=== PATIENT | male | born 1940 | race Caucasian/White ===

== ENCOUNTER → 2020-02-27 | Outpatient (CLI) | payer MEDICARE ==
[~2020-02-27] MED LIST: DOBUTamine DRIP for NUC MED 500 MG in DEXTROSE/WATER 1 250ML.BAG IV ONE
--- NOTE | 2020-02-27 17:27 | P.STRESS ---
- Stress Test Note Stress Test Results/Findings: Exam Performed: dobutamine stress echo Exam Date: 02/27/20 Reason for Exam: PRE-OP Height: 5 ft 7 in Weight: 150 kg Protocol: DSE Stage: 3 Duration of Exercise: 7:15 Resting Heart Rate: 58 Resting Blood Pressure: 128/63 Maximum Achieved Heart Rate: 120 Maximum Achieved Blood Pressure: 148/47 85% PMHR: 119 100% PMHR: 140 METS: NA Technologist Comment: Stress Test Results/Findings: Patient underwent dobutamine stress echo with infusion of dobutamine into Stage 3 for a total of 7 minutes 15 seconds. Patient's maximum heart rate was 120 bpm which represented 86 % age-predicted maximum heart rate. Stress EKG portion: At baseline patient's EKG showed normal sinus rhythm, normal axis, no significant ST or T wave abnormalities. At peak dobutamine infusion, EKG showed nondiagnostic 0.[address] depressions in the inferolateral leads. Stress echo portion: 2-D echocardiogram was performed in the parasternal long, personal short, apical 2 and apical four-chamber views at rest, low-dose, peak infusion and in recovery. At baseline, echocardiogram showed left ventricular ejection fraction 60% without wall motion abnormalities. With peak infusion, echocardiogram shows improvement in left ventricular ejection fraction, increase contractility, decrease in left ventricular dimension without wall motion abnormalities consistent with a normal response to dobutamine. Conclusions: 1. Normal stress EKG and echo response to dobutamine infusion without any evidence of inducible ischemia.
== END | disposition home or self-care (01) ==
LOC: RADNMMAIN 09:48
PROVIDERS: ATTEND Internal Medicine Clinical Cardiac Electrophysiology
DX: Z01.810 Encounter for preprocedural cardiovascular examination (principal)
CPT/HCPCS: 93351; J1250

== ENCOUNTER 2024-09-12 13:01 | Day surgery (SDC) | payer MEDICARE ==
[~2024-09-12 13:01] MED LIST changes: -DOBUTamine DRIP for NUC MED 500 MG in DEXTROSE/WATER 1 250ML.BAG IV ONE; +LACTATED RINGERS 1,000 ML IV SCH
[2024-09-12 14:24] VITALS: TEMP 97.2
[2024-09-12] MEDS: IV FLUID CONTINUATION 1,000 ML IV ONE (14:31)
[2024-09-12] MEDS ORDERED: PROPOFOL 10 MG/ML 20 ML VIAL IV ONE (15:06)
--- NOTE | 2024-09-12 15:16 | P.PCN ---
Date of Procedure: 09/12/24 Procedure(s) Performed: BRIEF HISTORY: Patient is a 83-year-old, pleasant, white male scheduled for an endoscopy as a part evaluation of GERD/chronic cough for the last several months duration. He has history of GERD and has been on omeprazole 20 mg daily but recently was switched to Protonix 40 mg daily and symptoms are gradually improving.. PROCEDURE PERFORMED: Esophagogastroduodenoscopy. With biopsy PREOPERATIVE DIAGNOSIS: GERD/chronic cough. IV sedation per anesthesia. PROCEDURE: After informed consent was obtained, the patient was brought into the endoscopy unit. IV sedation was administered by Anesthesia under continuous monitoring. Initially the Olympus GIF-140 video endoscope was inserted into the mouth. Esophagus intubated without any difficulty. It was gradually advanced into the stomach and duodenum and carefully examined. The bulb and the second part of the duodenum appeared normal. The scope at this time was withdrawn to the stomach, adequately insufflated with air, and upon careful examination, mucosa of the antrum, had gastritis and biopsies were done from this area. Mucosa of the body, cardia and the fundus appeared normal. The scope was then withdrawn into the esophagus. Small hiatal hernia noted. The GE junction was located at 37 cm from the incisors. There was a 3 mm tongues of Gu's appearing mucosa proximal to the GE junction that was biopsied. The rest of the esophagus appeared normal. There were no erosions or ulcerations seen and the patient tolerated the procedure well. IMPRESSION: 1. Mild antral gastritis. 2. Small hiatal hernia 3.. 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 RECOMMENDATIONS: The findings of this examination were discussed with the patient as well as his family. He was advised to follow-up with the biopsy results. If the biopsy confirms the presence of Gu's esophagus he can have repeat upper endoscopy in 3 years. In the meantime continue with the Protonix 40 mg daily and follow antireflux measures..
[2024-09-12 15:50] VITALS: BP 128/67; PULSE 55; RESP 16
== END 2024-09-12 16:16 | disposition home or self-care (01) ==
LOC: ORWHC2ENDO 13:01
PROVIDERS: ATTEND Internal Medicine Gastroenterology
DX: K22.70 Barrett's esophagus without dysplasia (principal); K21.00 Gastro-esophageal reflux disease with esophagitis, without bleeding; K29.50 Unspecified chronic gastritis without bleeding; K44.9 Diaphragmatic hernia without obstruction or gangrene; I10 Essential (primary) hypertension; E78.5 Hyperlipidemia, unspecified; Z79.899 Other long term (current) drug therapy
CPT/HCPCS: 88305; 43239; J2704